=== PATIENT | female | born 1985 | race Caucasian/White ===

== ENCOUNTER 2020-12-27 21:07 | Emergency (ER) | payer OTHER ==
[2020-12-27 22:46] LABS: HEMOGLOBIN 13.4 gm/dl (12.3-15.3); RED BLOOD COUNT 4.55 M/UL (4.00-5.10); WHITE BLOOD COUNT 9.3 K/UL (4.5-11.0)
[2020-12-27 23:02] LABS: BUN/CREATININE RATIO 11 (0-10)
[2020-12-28] MEDS ORDERED: BACTRIM 400-801 EACH PO (01:14)
[2020-12-28] MEDS ORDERED: NAPROXEN500 MG PO (01:14)
[2020-12-28] MEDS ORDERED: ZOFRAN4 MG PO (01:14)
== END 2020-12-28 01:30 | disposition home or self-care (01) ==
LOC: ER1 21:07
PROVIDERS: Physician Assistant
DX: N39.0 Urinary tract infection, site not specified (principal); I10 Essential (primary) hypertension; Z90.49 Acquired absence of other specified parts of digestive tract; Z90.710 Acquired absence of both cervix and uterus
CPT/HCPCS: 80053; 81001; 83690; 85025; 87086; 96374; 96375; 96376; 99284; J2270; J2405; Q9967

== ENCOUNTER 2020-12-31 10:55 | Emergency (ER) | payer OTHER ==
[~2020-12-31 10:55] MED LIST: BACTRIM 400-801 EACH PO; NAPROXEN500 MG PO; ZOFRAN4 MG PO
[2020-12-31 12:33] LABS: HEMOGLOBIN 12.8 gm/dl (12.3-15.3); RED BLOOD COUNT 4.33 M/UL (4.00-5.10); WHITE BLOOD COUNT 7.3 K/UL (4.5-11.0)
[2020-12-31 12:59] LABS: BUN/CREATININE RATIO 11 (0-10)
[2020-12-31] MEDS ORDERED: ZOFRAN4 MG PO (16:55)
[2020-12-31] MEDS ORDERED: PHENERGAN 12.12.5 MG PR (17:26)
[2020-12-31] MEDS ORDERED: BENTYL 10MG CAP10 MG PO (17:26)
== END 2020-12-31 18:03 | disposition home or self-care (01) ==
LOC: ER1 10:55
PROVIDERS: Physician Assistant
DX: R07.9 Chest pain, unspecified (principal); R00.2 Palpitations; I10 Essential (primary) hypertension; R10.9 Unspecified abdominal pain; Z90.710 Acquired absence of both cervix and uterus; Z20.822 Contact with and (suspected) exposure to COVID-19
CPT/HCPCS: 71045; 80053; 80307; 81001; 82550; 82553; 83874; 84484; 85025; 85379; 87086; 93005; 96374; 96375; 96376; 99285; J1885; J2270; J2405; Q9967; U0002

== ENCOUNTER 2021-02-05 13:53 | Emergency (ER) | payer OTHER ==
[~2021-02-05 13:53] MED LIST changes: +BENTYL 10MG CAP10 MG PO; +PHENERGAN 12.12.5 MG PR
[2021-02-05] MEDS ORDERED: ONDANSETRON ODT4 MG SL (15:13)
[2021-02-05] MEDS ORDERED: MUCINEX1200 MG PO (15:13)
== END 2021-02-05 15:19 | disposition home or self-care (01) ==
LOC: ER1 13:53
DX: U07.1 COVID-19 (principal); J40 Bronchitis, not specified as acute or chronic; I10 Essential (primary) hypertension; Z90.710 Acquired absence of both cervix and uterus
CPT/HCPCS: 71046; 87081; 87880; 99283; U0003

== ENCOUNTER → 2021-04-07 | Outpatient (CLI) | payer OTHER ==
[~2021-04-07] MED LIST changes: +ATENOLOL50 MG PO; +CYCLOBENZAPRINE10 MG PO; +EFFEXOR XR 150150 MG PO; +EFFEXOR XR 75 M75 MG PO; +HYDROCODON-ACE1 EAC2 PO; +IBU800 MG PO; +LORAZEPAM0.5 MG PO; +MUCINEX1200 MG PO; +ONDANSETRON ODT4 MG SL; +SEROQUEL50 MG PO; +VISTARIL25 MG PO; +VITAMIN D21250 MCG PO
[2021-04-07 08:44] LABS: HEMOGLOBIN 12.1 gm/dl (12.3-15.3); RED BLOOD COUNT 4.21 M/UL (4.00-5.10); WHITE BLOOD COUNT 5.3 K/UL (4.5-11.0)
[2021-04-07 09:03] LABS: BUN/CREATININE RATIO 11 (0-10)
== END ==
LOC: OPSV2 07:50
PROVIDERS: Orthopaedic Surgery
DX: Z01.818 Encounter for other preprocedural examination (principal); G56.01 Carpal tunnel syndrome, right upper limb
CPT/HCPCS: 36415; 80048; 85025

== ENCOUNTER → 2021-04-10 | Day surgery (SDC) | payer OTHER ==
[~2021-04-10] VITALS: Ht 167.6 cm; Wt 113.4 kg
== END | disposition home or self-care (01) ==
LOC: OR 07:25
DX: G56.01 Carpal tunnel syndrome, right upper limb (principal); I10 Essential (primary) hypertension; E66.9 Obesity, unspecified; K76.0 Fatty (change of) liver, not elsewhere classified; F40.240 Claustrophobia; Z68.41 Body mass index [BMI] 40.0-44.9, adult; Z20.822 Contact with and (suspected) exposure to COVID-19
CPT/HCPCS: J0690; J1100; J1885; J2001; J2250; J2405; J2704; J3010; J7120

== ENCOUNTER 2021-05-02 17:48 | Emergency (ER) | payer OTHER ==
[2021-05-02 19:20] LABS: RED BLOOD COUNT 4.49 M/UL (4.00-5.10); WHITE BLOOD COUNT 7.6 K/UL (4.5-11.0)
[2021-05-02 19:50] LABS: BUN/CREATININE RATIO 13 (0-10)
[2021-05-02] MEDS ORDERED: NAPROSYN500 MG PO (23:00)
[2021-05-02] MEDS ORDERED: CEFUROXIME500 MG PO (23:00)
[2021-05-02] MEDS ORDERED: CYCLOBENZAPRINE5 MG PO (23:00)
== END 2021-05-02 20:17 | disposition home or self-care (01) ==
LOC: ER1 17:48
PROVIDERS: Physician Assistant
DX: S39.012A Strain of muscle, fascia and tendon of lower back, initial encounter (principal); S33.5XXA Sprain of ligaments of lumbar spine, initial encounter; R10.31 Right lower quadrant pain; I10 Essential (primary) hypertension; Z90.49 Acquired absence of other specified parts of digestive tract; X58.XXXA Exposure to other specified factors, initial encounter
CPT/HCPCS: 80053; 81001; 83605; 83690; 85025; 87086; 96372; 99284; J1885; Q9967

== ENCOUNTER 2021-05-10 18:38 | Emergency (ER) | payer OTHER ==
[~2021-05-10 18:38] MED LIST changes: +CEFUROXIME500 MG PO; +CYCLOBENZAPRINE5 MG PO; +NAPROSYN500 MG PO
[2021-05-10 21:51] LABS: HEMOGLOBIN 13.4 gm/dl (12.3-15.3); RED BLOOD COUNT 4.58 M/UL (4.00-5.10); WHITE BLOOD COUNT 13.9 K/UL (4.5-11.0)
[2021-05-11 05:49] LABS: BUN/CREATININE RATIO 18 (0-10)
== END 2021-05-11 02:55 | disposition home or self-care (01) ==
LOC: ER1 18:38
PROVIDERS: Physician Assistant
DX: R20.2 Paresthesia of skin (principal); I10 Essential (primary) hypertension; Z90.49 Acquired absence of other specified parts of digestive tract
CPT/HCPCS: 72146; 72148; 80053; 84703; 85025; 96372; 96374; 96375; 99284; J1200; J1630; J2270

== ENCOUNTER 2021-05-18 17:46 | Emergency (ER) | payer OTHER ==
[2021-05-18] MEDS ORDERED: CEPHALEXIN500 M1 PO (20:14)
[2021-05-18] MEDS ORDERED: OMEPRAZOLE20 M1 PO (20:14)
[2021-05-18] MEDS ORDERED: ANAPROX DS550 MG PO (20:14)
[2021-05-18] MEDS ORDERED: CYCLOBENZAPRINE10 MG PO (20:14)
== END 2021-05-18 20:24 | disposition home or self-care (01) ==
LOC: ER1 17:46
DX: S39.012A Strain of muscle, fascia and tendon of lower back, initial encounter (principal); M51.36 Other intervertebral disc degeneration, lumbar region; I10 Essential (primary) hypertension; X58.XXXA Exposure to other specified factors, initial encounter
CPT/HCPCS: 81001; 87086; 96372; 99283; J1100; J1885

== ENCOUNTER 2021-05-27 16:11 | Emergency (ER) | payer OTHER ==
[~2021-05-27 16:11] MED LIST changes: +ANAPROX DS550 MG PO; +CEPHALEXIN500 M1 PO; +OMEPRAZOLE20 M1 PO
[2021-05-27] MEDS ORDERED: MEDROL DOSEPAK 24 MG PO (17:58)
== END 2021-05-27 18:41 | disposition home or self-care (01) ==
LOC: ER1 16:11
DX: M54.41 Lumbago with sciatica, right side (principal); G89.29 Other chronic pain
CPT/HCPCS: 96372; 99283; J1100; J1885

== ENCOUNTER 2021-09-05 18:42 | Emergency (ER) | payer OTHER ==
[~2021-09-05 18:42] MED LIST changes: +MEDROL DOSEPAK 24 MG PO
[2021-09-05 19:20] LABS: HEMOGLOBIN 12.7 gm/dl (12.3-15.3); RED BLOOD COUNT 4.38 M/UL (4.00-5.10); WHITE BLOOD COUNT 6.9 K/UL (4.5-11.0)
[2021-09-05 19:41] LABS: BUN/CREATININE RATIO 10 (0-10)
== END 2021-09-05 21:12 | disposition home or self-care (01) ==
LOC: ER1 18:42
PROVIDERS: Family Medicine
DX: R10.11 Right upper quadrant pain (principal); I10 Essential (primary) hypertension
CPT/HCPCS: 80053; 81001; 83690; 85025; 96374; 96375; 99284; J1885; J2270; J2405; Q9967